=== PATIENT | male | born 1995 | race American Indian/Alaskan Native ===

== ENCOUNTER 2016-08-20 23:11 | Emergency (ER) | payer SELFPAY ==
--- NOTE | 2016-08-21 01:09 | Emergency Department Report ---
ED Rash HPI - HPI Chief Complaint: Skin Rash Stated Complaint: INSECT BITE Time Seen by Provider: 08/20/16 23:41 Duration: 3 Days Location: Upper Extremities Suspected Cause: Insect Rash Symptoms: Yes Itching (bilateral upper extremity), No Facial Swelling, No Tongue/Oral Swelling, No Breathing Difficulties, No Choking Sensation, No Wheezing/Dyspnea, No Peeling, No Blistering, No Fever, No Lightheaded, No Malaise, No Myalgias Other History: Patient here reported that he was bitten on is arms and forearms by insects 3 days ago. He is reporting itching and small bumps 2 areas. Denies any fever or chills. Denies any respiratory symptoms to include sole of time, difficulty breathing, chest pain, wheezing, coughing or stridor. Patient said he took topical steroid and applied site but he still itching. ED Review of Systems ROS: Stated complaint: INSECT BITE Other details as noted in HPI Comment: All other systems reviewed and negative Constitutional: denies: chills, fever ENT: denies: throat pain, congestion Respiratory: no symptoms reported Cardiovascular: denies: chest pain, palpitations, edema, syncope Gastrointestinal: denies: nausea, vomiting Musculoskeletal: denies: joint swelling, arthralgia, myalgia Skin: rash, pruritus Neurological: denies: headache ED Past Medical Hx - Past Medical History Previous Medical History?: No - Surgical History Past Surgical History?: No - Family History Family history: no significant - Social History Smoking Status: Never Smoker Substance Use Type: None - Medications Home Medications: Home Medications Medication Instructions Recorded Confirmed Last Taken Type Cephalexin [Keflex] 500 mg PO Q8HR #15 cap 08/21/16 Unknown Rx hydrOXYzine HCL [Atarax] 25 mg PO Q6HR PRN #16 tablet 08/21/16 Unknown Rx Rash Exam - Exam General: Vital signs noted. No distress. Alert and acting appropriately. This is a 20-year-old male well-nourished well-developed in no acute distress. HEENT: No Periorbital Edema, No Conjuctival Injection, No Chemosis, No Perioral Edema, No Tongue Edema, No Uvular Edema, No Compromised Airway, No Drooling Lungs: Yes Good Air Exchange, No Wheezes, No Ronchi, No Stridor, No Cough, No Labored Respirations, No Retractions, No Use of Accessory Muscles, No Other Abnormal Lung Sounds Heart: Yes Regular, No Murmur Skin: Yes Tenderness, Yes Erythema (pustular erythema areas scattered sparsely to old forearm and both arm approximately 4 areas in total.), No Urticarial Rash , No Maculopapular Rash, No Morbilliform rash, No Bulla(e), No Excoriations, No Weeping, No Edema, No Encrustations Other: Positive: Abdomen Normal, Neurologic Normal, Musculoskeletal Normal ED Course Vital Signs 08/20/16 23:15 Temperature 98.6 F Pulse Rate 91 H Respiratory 18 Rate Blood Pressure 126/72 Blood Pressure 126/72 [Left] O2 Sat by Pulse 98 Oximetry - Reevaluation(s) Reevaluation #1: 08/21/16 02:19 Patient stable throughout ED stay ED Medical Decision Making - Medical Decision Making ED course: A she is status post insect bite with mild cellulitis of bilateral upper extremity. Insect bite sites appear to be slightly infected with redness and tenderness to palpate and appear as pustules. Patient reports that he is also itching. He has no respiratory symptoms. I discussed treatment plan with patient and also diagnosis any voice understanding. Discharged home with prescription for Atarax and Keflex and to follow-up at [facility] as he does not have a primary care physician. Critical care attestation.: If time is entered above; I have spent that time in minutes in the direct care of this critically ill patient, excluding procedure time. ED Disposition Clinical Impression: Pustules determined by examination, Pruritic condition Insect bite Qualifiers: Encounter type: initial encounter Qualified Code(s): W57.XXXA - Bitten or stung by nonvenomous insect and other nonvenomous arthropods, initial encounter Disposition: DC-01 TO HOME OR SELFCARE Is pt being admited?: No Does the pt Need Aspirin: No Condition: Stable Instructions: Insect Bite or Sting (ED), Acute Rash (ED), Itchy Skin (ED) Additional Instructions: Please keep affected areas clean and dry Take antibiotic as prescribed Prescriptions: Cephalexin [Keflex] 500 mg PO Q8HR #15 cap hydrOXYzine HCL [Atarax] 25 mg PO Q6HR PRN #16 tablet PRN Reason: Itching Referrals: [facility] [Outside] - 3-5 Days SARA GOODEN MD [Staff Physician] - 3-5 Days Forms: Work/School Release Form(ED)
[2016-08-21 02:26] VITALS: BP 130/82
== END 2016-08-21 02:28 | disposition home or self-care (01) ==
LOC: ED 23:11
DX: L08.9 Local infection of the skin and subcutaneous tissue, unspecified (principal); L29.9 Pruritus, unspecified; W57.XXXA Bitten or stung by nonvenomous insect and other nonvenomous arthropods, initial encounter; Y93.89 Activity, other specified; Y99.9 Unspecified external cause status; Y92.89 Other specified places as the place of occurrence of the external cause
CPT/HCPCS: 99282